=== PATIENT | female | born 1995 | race Caucasian/White ===

== ENCOUNTER 2018-11-25 07:07 | Emergency (ER) | payer OTHER ==
[~2018-11-25] VITALS: Ht 172.7 cm; Wt 88.9 kg
[2018-11-25 07:08] VITALS: BP 154/99
== END 2018-11-25 08:47 | disposition home or self-care (01) ==
LOC: ED 08:41
DX: M65.4 Radial styloid tenosynovitis [de Quervain] (principal); X50.1XXA Overexertion from prolonged static or awkward postures, initial encounter; Y93.89 Activity, other specified; Y92.69 Other specified industrial and construction area as the place of occurrence of the external cause; Y99.8 Other external cause status
CPT/HCPCS: 29260; 99283